=== PATIENT | male | born 1965 | race Caucasian/White ===

== ENCOUNTER 2019-01-05 16:12 | Emergency (ER) | payer BC ==
[~2019-01-05] VITALS: Ht 180.3 cm; Wt 92.0 kg
[~2019-01-05 16:12] MED LIST: AMBIEN10 MG PO; AMOXICILLIN500 M2 PO; AUGMENTIN500TAB PO; FLEXERIL PO; HYDROCO/APAP1 TA9 PO; MOTRIN800 MG/TAB PO; NAPROSYN500 MG PO; NEURONTIN300 MG PO; SOMA350 MG PO
[2019-01-05 17:04] LABS: URINE BILIRUBIN - DIPSTICK NEGATIVE (NEGATIVE); URINE BLOOD DIPSTICK LARGE (NEGATIVE); URINE COLOR YELLOW; URINE GLUCOSE - DIPSTICK NEGATIVE (NEGATIVE); URINE KETONE TRACE mg/dL (NEGATIVE); URINE LEUK ESTERASE NEGATIVE (NEGATIVE); URINE NITRITE - DIPSTICK NEGATIVE (Negative); URINE PH 5.5 (4.5-8.0); URINE PROTEIN - DIPSTICK 100 mg/dL (NEG-TRACE); URINE SPECIFIC GRAVITY >=1.030; URINE UROBILINOGEN - DIPSTICK 0.2 E.U./dL (0.2)
[2019-01-05 17:06] LABS: HEMATOCRIT 47.2 % (39.0-50.0); HEMOGLOBIN 16.2 g/dl (14.0-18.0); IMMATURE GRANULOCYTES 0.3 % (0.0-5.0); MEAN CELL VOLUME 90.6 fL CALC (80.0-100.0); MEAN CORPUSCULAR HGB 31.1 pG CALC (26.0-32.0); MEAN CORPUSCULAR HGB CONC 34.3 g/L CALC (32.0-36.0); NEUT# 4.33 thou/uL (1.82-7.42); RED BLOOD COUNT 5.21 mill/uL (4.70-6.10)
[2019-01-05 17:12] LABS: URINE BACTERIA FEW hpf; URINE MUCUS FEW hpf (NONE-FEW); URINE RBC 25-50 RBC/hpf (0-5); URINE SQUAMOUS EPITHELIAL CELL RARE EPI/hpf (0-FEW); URINE YEAST MANY hpf
[2019-01-05 17:17] LABS: ALBUMIN 4.8 g/dL (3.2-5.0); ALKALINE PHOSPHATASE 90 u/l (38-126); ANION GAP 15 (6-22 (CALC)); BILIRUBIN, TOTAL 0.9 mg/dL (0.0-1.4); BUN 17 mg/dL (9-20); BUN/CREATININE RATIO 16 (12-20 (CALC)); CARBON DIOXIDE 26 mmol/l (22-30); CHLORIDE 101 mmol/l (95-108); CREATININE 1.1 mg/dL (0.7-1.3); GFR > 60 ML/MIN (>=60 (CALC)); GFR FOR AFR.AMER. > 60 ML/MIN (>=60 (CALC)); LIPASE 59 u/l (23-300); SGOT/AST 31 u/l (17-59); SODIUM 138 mmol/l (137-146); TOTAL PROTEIN 7.7 g/dL (6.3-8.2)
[2019-01-05 18:43] VITALS: BP 151/99
[2019-01-05] MEDS ORDERED: CEPHALEXIN500 M1 PO (18:55)
[2019-01-05] MEDS ORDERED: TAMSULOSIN0.4 MG PO (18:56)
[2019-01-05] MEDS ORDERED: MOTRIN400 MG PO (18:56)
== END 2019-01-05 19:05 | disposition home or self-care (01) | DRG 694 ==
LOC: ED 16:12
PROVIDERS: Family Medicine
DX: N13.2 Hydronephrosis with renal and ureteral calculous obstruction (principal); I10 Essential (primary) hypertension